=== PATIENT | female | born 1980 | race Caucasian/White ===

== ENCOUNTER → 2016-10-28 | Day surgery (SDC) | payer OTHER, MEDICAID ==
[~2016-10-28] MED LIST: BUPIVACAINE/EPINEPHRINE 0.5% PF 30 ML VIAL ONE; KETOROLAC TROMETHAMINE 30 MG/ML (IVP) VIAL IV PUSH ONE; LACTATED RINGER'S 1,000 ML BAG IV ONE; MIDAZOLAM HCL 2 MG/2 ML VIAL ONE; ONDANSETRON HCL 4 MG/2 ML VIAL IV PUSH ONE; PROPOFOL 200 MG/20 ML AMP IV ONE
--- NOTE | 2016-10-29 10:22 | MP ---
cc: RAGHAVENDRA GONZALEZ M.D. DATE OF SURGERY: 10/28/2016 PREOPERATIVE DIAGNOSIS 1. Missed at six weeks. POSTOPERATIVE DIAGNOSIS 1. Missed at six weeks. 1. Post-op day #0. INDICATIONS Mar Muniz is a 35-year-old, 3, para 0-0-3-0, who was seen in the office for a new OB evaluation which included a viability ultrasound. By the patient's last menses she should have been approximately 11-1/2 weeks, but on ultrasound an empty sac was seen measuring only six weeks. The patient desired expectant management. She had labs drawn which confirmed Rh positive status. Her quantitative beta hCG did drop over 48 hours and on repeat ultrasound one week later there was no change. She elected for surgical management based on diagnosis of missed . PROCEDURE PERFORMED 1. Exam under anesthesia. 2. Dilation and curettage with suction. SURGEON Raghavendra Gonzalez MD ANESTHESIA General using LMA. ESTIMATED BLOOD LOSS 25 mL. URINE OUTPUT 40 mL of clear urine drained by in-and-out catheter at the beginning of the procedure. IV FLUID REPLACEMENT 600 mL. COMPLICATIONS None. COUNTS Sponge, lap, instrument and needle are correct x2 at the conclusion of the procedure. PROPHYLAXIS SCDs were on and functioning throughout the entire case. Ancef one gram IV was given preoperatively. SPECIMEN Products of conception. INTRAOPERATIVE FINDINGS Normal external female genitalia; cervix closed; uterus sounded to 8cm. Products visualized in suction tubing. PROCEDURE IN DETAIL After reviewing the informed consent, the patient was taken to the operating suite where a timeout was performed to identify the patient, planned procedure and any known allergies to drugs or drug products. The patient was then placed in dorsal supine position and general anesthesia using LMA was administered without difficulty and found to be adequate. The patient was then gently elevated into high lithotomy position in [facility]-cane stirrups. Exam under anesthesia was performed with results as listed above. The perineum was then prepped and draped in normal sterile fashion. A red rubber catheter was used to sterilely drain the bladder. Attention was then turned vaginally where a sterile speculum was placed. The cervix was visualized and grasped on the anterior lip with a single-tooth tenaculum. Approximately 10 mL of 0.25% Marcaine with epinephrine were used to perform a paracervical block. The uterus was then sounded to 8 cm. Progression of cervical dilators were used to accommodate a #8 suction curette. The suction curette was then introduced, rotated multiple times with clearance of intrauterine contents. The suction device was removed and sharp curettage was then performed until a good cry was found in all areas. Suction was then introduced one final time with no additional products seen in tubing. The tenaculum was removed. The speculum was removed. The procedure concluded at this point. The patient tolerated the procedure well without complication. DISPOSITION The patient will be discharged to home today. She is to follow-up in the office in 2 weeks. She is aware of post-op precautions. MD NACHO Morgan/MONSE /12:21 PM /10:12 AM SEVERO
== END | disposition home or self-care (01) ==
LOC: ESDC 10:22
PROVIDERS: ATTEND Obstetrics & Gynecology
DX: O02.1 Missed abortion (principal); Z3A.01 Less than 8 weeks gestation of pregnancy
CPT/HCPCS: 01965; 59820; 88305; J1885; J2250; J2405; J3010; J7120